=== PATIENT | male | born 1980 | race Caucasian/White ===

== ENCOUNTER 2020-02-29 21:38 | Emergency (ER) | payer OTHER ==
[~2020-02-29] VITALS: Ht 185.4 cm; Wt 90.7 kg
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
[2020-02-29 22:15] LABS: AMP/METHAMP POSITIVE (Negative); BARBITURATES Negative (Negative); BENZODIAZEPINES Negative (Negative); COCAINE Negative (Negative); METHADONE Negative (Negative); OPIATES POSITIVE (Negative); PCP Negative (Negative)
[2020-02-29 22:19] LABS: ABSOLUTE NEUTROPHILS 4.7 thou/uL (1.4-8.2); EOSINOPHILS 5.1 % (0.0-3.0); HEMATOCRIT 44.9 % (42.0-52.0); HEMOGLOBIN 15.2 gm/dL (14.0-18.0); LYMPHOCYTES 25.4 % (24.0-44.0); MCH 31.1 pg (26.0-34.0); MCHC 33.7 g/dL (28.0-37.0); MCV 92.2 fL (80.0-100.0); MONOCYTES 4.8 % (1.0-8.0); PLATELET COUNT 260 thou/uL (150-400); POLYS 63.7 % (36.0-66.0); RBC 4.87 mil/uL (4.50-6.00); RDW 13.3 % (10.5-14.5); WBC 7.3 thou/uL (4.0-11.0)
[2020-02-29 22:35] LABS: CALCIUM 9.7 mg/dL (8.5-10.1); CREATININE 1.3 mg/dL (0.7-1.3); POTASSIUM 3.8 mmol/L (3.5-5.1)
[2020-03-01 01:31] VITALS: BP 108/70
== END 2020-03-01 01:26 | disposition home or self-care (01) ==
LOC: ER 21:38
PROVIDERS: Nurse Practitioner
DX: M54.2 Cervicalgia (principal); R07.89 Other chest pain; R51.9 Headache, unspecified; Z98.890 Other specified postprocedural states; V49.88XA Car occupant (driver) (passenger) injured in other specified transport accidents, initial encounter; Y93.89 Activity, other specified; Y92.413 State road as the place of occurrence of the external cause; Y99.9 Unspecified external cause status